=== PATIENT | female | born 2000 | race African-American/Black ===

== ENCOUNTER 2019-10-03 10:12 | Emergency (ER) | payer OTHER ==
[~2019-10-03] VITALS: Ht 170.2 cm; Wt 68.5 kg
[~2019-10-03 10:12] MED LIST: PREN-88 PO
[2019-10-03] MEDS ORDERED: SODIUM CHLORIDE 0.9% 1,000 ML IV ONE (11:11)
[2019-10-03] MEDS ORDERED: ACETAMINOPHEN 325MG TABLET PO ONE (11:15)
[2019-10-03 11:46] LABS: BASOPHILS % 0.4 % (0.0-2.0); EOSINOPHILS % 0.1 % (0.0-5.0); HEMATOCRIT. 35.9 % (36.0-48.0); HEMOGLOBIN. 12.2 g/dL (12.0-16.0); LYMPHOCYTES % 16.8 % (20.0-50.0); MEAN CORPUSCULAR HEMOGLOBIN 28.4 pg (28.0-32.0); MEAN CORPUSCULAR VOLUME 83.4 fL (81.0-99.0); MONOCYTES % 4.7 % (2.0-8.0); PLATELET 252 x1000/uL (130-400); RED CELL DISTRIBUTION WIDTH 13.7 % (11.6-14.6)
[2019-10-03 11:55] LABS: CHLORIDE 108 mEq/L (98-107)
[2019-10-03 11:56] LABS: PROTHROMBIN TIME 10.3 sec (9.6-11.0)
[2019-10-03 11:58] LABS: ETHANOL BLOOD < 10 mg/dL
[2019-10-03 12:19] LABS: B-HCG QUANTITATIVE 10497 mIU/mL (<3)
[2019-10-03 14:43] LABS: CLARITY URINE CLEAR (CLEAR); COLOR URINE DARK YELLOW (YELLOW); KETONES URINE 4+ (NEGATIVE); LEUKOCYTE ESTERASE URINE NEGATIVE (NEGATIVE); NITRITE URINE NEGATIVE (NEGATIVE); OCCULT BLOOD URINE NEGATIVE (NEGATIVE); PH URINE 6.5 (4.5-8.0); PROTEIN URINE 2+ (NEGATIVE); SPECIFIC GRAVITY URINE 1.026 (1.005-1.030)
[2019-10-03] MEDS ORDERED: BACITRACIN 15GM TUBE TOP ONE (15:00)
[2019-10-03 15:22] LABS: *BARBITURATES SCREEN URINE NEGATIVE (NEGATIVE); *BENZODIAZEPINES SCREEN URINE NEGATIVE (NEGATIVE); *COCAINE SCREEN URINE NEGATIVE (NEGATIVE)
[2019-10-03 15:23] LABS: METHADONE URINE SCREEN NEGATIVE (NEGATIVE); OPIATES URINE SCREEN NEGATIVE (NEGATIVE); PHENCYCLIDINE URINE SCREEN NEGATIVE (NEGATIVE)
[2019-10-03 15:27] LABS: *AMPHETAMINES SCREEN URINE PRESUMTIVE POSITIVE (NEGATIVE); CANNABINOID URINE SCREEN PRESUMTIVE POSITIVE (NEGATIVE)
[2019-10-03 16:44] VITALS: BP 123/46
== END 2019-10-03 18:37 | disposition home or self-care (01) ==
LOC: ER 10:27
DX: O26.892 Other specified pregnancy related conditions, second trimester (principal); Z3A.19 19 weeks gestation of pregnancy; Z98.890 Other specified postprocedural states
CPT/HCPCS: 36415; 71045; 73030; 73080; 73562; 73630; 73650; 76705; 76805; 80053; 80305; 80320; 81003; 83690; 84702; 85025; 85610; 86850; 86900; 86901; 99285; J7030; L1830; G0480

== ENCOUNTER 2021-02-10 15:21 | Emergency (ER) | payer OTHER, MEDICAID ==
[~2021-02-10] VITALS: Ht 177.8 cm; Wt 70.0 kg
[~2021-02-10 15:21] MED LIST changes: +EPINEPHRINE 0.1MG/ML (1:10,000) 10ML SYR ONE; +ETOMIDATE 2MG/ML 10ML VIAL IV ONE; -PREN-88 PO; +SODIUM CHLORIDE 0.9% 10ML VIAL ONE; +SUCCINYLCHOLINE CHLORIDE 200MG/10ML IV ONE; +VECURONIUM BROMIDE 10 MG/VIAL IV ONE
[2021-02-10] MEDS ORDERED: TETANUS, DIPHTHERIA, PERTUSSIS VAC/PF 0.5ML (>10YR OLD) IM ONE (15:30)
[2021-02-10] MEDS ORDERED: SODIUM CHLORIDE 0.9% 1,000 ML IV ONE (15:30)
[2021-02-10 15:33] VITALS: BP 149/106
[2021-02-10 15:49] LABS: BASOPHILS % 1.1 % (0.0-2.0); EOSINOPHILS % 6.4 % (0.0-5.0); HEMATOCRIT. 23.8 % (36.0-48.0); LYMPHOCYTES % 58.6 % (20.0-50.0); MEAN CORPUSCULAR HEMOGLOBIN 19.2 pg (28.0-32.0); MEAN CORPUSCULAR VOLUME 72.8 fL (81.0-99.0); MEAN PLATELET VOLUME 8.6 fl (7.4-10.4); NEUTROPHILS % 30.9 % (40.0-76.0); PLATELET 299 x1000/uL (130-400); RED BLOOD CELL COUNT 3.27 mill/uL (4.2-5.4); RED CELL DISTRIBUTION WIDTH 19.9 % (11.6-14.6)
[2021-02-10 15:56] LABS: CHLORIDE 112 mEq/L (98-107)
[2021-02-10 16:00] LABS: HCG SCREEN NEGATIVE
[2021-02-10] MEDS ORDERED: MORPHINE SULFATE 4 MG/ML CPJ (NOT FOR IM USE) IV NR (16:00)
[2021-02-10] MEDS ORDERED: ONDANSETRON HCL 4MG/2ML INJ IV NR (16:00)
[2021-02-10] MEDS ORDERED: PROPOFOL 10MG/ML 100ML 100 ML IV SCH (16:15)
[2021-02-10] MEDS ORDERED: FENTANYL CITRATE/PF 1,000 MCG in SODIUM CHLORIDE 0.9% 80 ML IV PRN (16:15)
[2021-02-10 16:18] LABS: HEMOGLOBIN. 6.3 g/dL (12.0-16.0)
[2021-02-10] MEDS ORDERED: NOREPINEPHRINE 8MG/250ML PMX 250 ML IV ONE ×2 (16:30→16:31)
== END 2021-02-10 17:36 | disposition short-term general hospital (02) ==
LOC: ER 15:27 → MERGE 15:27 → EDBD 15:27 → ER 17:36
DX: S21.142A Puncture wound with foreign body of left front wall of thorax without penetration into thoracic cavity, initial encounter (principal); S31.140A Puncture wound of abdominal wall with foreign body, right upper quadrant without penetration into peritoneal cavity, initial encounter; S71.142A Puncture wound with foreign body, left thigh, initial encounter; X95.9XXA Assault by unspecified firearm discharge, initial encounter; Y93.89 Activity, other specified; Y92.89 Other specified places as the place of occurrence of the external cause
CPT/HCPCS: 36415; 71045; 74018; 80053; 84703; 85025; 86850; 86900; 86901; 86920; 90471; 90715; 96360; 99291; J0330; J2270; J2405; J3490; J7030; J2704; P9016